=== PATIENT | female | born 1950 | race Caucasian/White ===

== ENCOUNTER 2017-09-24 16:26 | Outpatient (CLI) | payer BC ==
--- NOTE | 2017-09-26 17:12 | Mammography Report ---
DATE OF SERVICE: 09/24/2017 DIGITAL SCREENING MAMMOGRAM: 09/24/2017 CLINICAL INDICATION: A 67-year-old, for screening. COMPARISON: 07/2015, 06/2014, 02/2013, 01/2012, 11/2010. TECHNIQUE: Routine CC and MLO projections were obtained of the breasts. FINDINGS: The breasts demonstrate scattered fibroglandular densities bilaterally. Coarse and punctate, typically benign calcifications are present. No suspicious masses, clustered microcalcifications, or regions of architectural distortion are identified. IMPRESSION: BENIGN FINDINGS. RECOMMENDATION: ROUTINE ANNUAL SCREENING UNLESS OTHERWISE CLINICALLY INDICATED. BIRADS CATEGORY 2-BENIGN FINDINGS. STANDARD QUALIFYING STATEMENTS: 1. This examination was reviewed with the aid of Computer-Aided Detection (CAD). 2. A negative or benign imaging report should not delay biopsy if clinically suspicious findings are present. Consider surgical consultation if warranted. More than 5% of cancers are not identified by imaging. 3. Dense breasts may obscure an underlying neoplasm. TD: 09/26/2017 18:12
== END 2017-09-24 16:27 | disposition home or self-care (01) ==
LOC: DI 16:26
PROVIDERS: ATTEND Physician Assistant Medical
DX: Z12.31 Encounter for screening mammogram for malignant neoplasm of breast (principal)
CPT/HCPCS: 77067

== ENCOUNTER 2018-09-17 14:53 | Outpatient (CLI) | payer BC, MEDICARE ==
--- NOTE | 2018-09-18 11:53 | Ultrasound Report ---
Reason: THYROID NODULE Procedure Date: 09/17/2018 Accession Number: [id number] / [id number] Procedure: US - Head or Neck Soft Tissue CPT Code: FULL RESULT: EXAM: THYROID ULTRASOUND EXAM DATE: 09/17/2018 04:32 PM. CLINICAL HISTORY: Thyroid nodule. COMPARISON: Head or neck soft tissue 03/30/2016 9:07 AM. Thyroid 10/03/2010 10:05 AM. TECHNIQUE: Real time sonographic imaging of the thyroid was performed by the central office installer. Multiple leasing representative static images were saved for review. FINDINGS: THYROID GLAND: Right Lobe: 3.6 x 1.5 x 1.2 cm, volume 3.2 cc. Normal background echotexture. Right Lobe Nodules: Two tiny modules measuring up to 0.7 cm are again seen. Left Lobe: 5.4 x 2.8 x 3.7 cm, volume 29.7 cc. Background parenchyma is difficult to assess as there is essentially diffuse nodular replacement as described below. Left Lobe Nodules: Diffuse cystic and solid nodular replacement with the largest nodule in the upper lobe of the left thyroid gland measuring 1.6 x 1.7 x 1.6 cm, solid with vascularity. The largest nodule in the inferior pole of the left thyroid gland measures 1.9 x 1.2 x 1.6 cm and is partially cystic and partially solid with vascularity by color Doppler. Isthmus: 0.4 cm AP. Isthmic Nodules: None. LYMPH NODES: No adenopathy demonstrated in the central or lateral compartment. OTHER: None. 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 Recommend fine needle aspiration tissue sampling of the dominant left upper pole nodule and dominant left lower pole nodule respectively. Management recommendations are based on 2015 [employer] Management Guidelines for Adult Patients with Thyroid Nodules and Differentiated Thyroid Cancer. RADIA
== END 2018-09-17 14:54 | disposition home or self-care (01) ==
LOC: DI 14:53
PROVIDERS: ATTEND Physician Assistant Medical
DX: E04.2 Nontoxic multinodular goiter (principal)
CPT/HCPCS: 76536

== ENCOUNTER 2018-11-06 13:32 | Outpatient (CLI) | payer BC, MEDICARE ==
[2018-11-06] MEDS ORDERED: BUFFERED LIDOCAINE 10 ML SYRINGE ONE (13:41)
[2018-11-06] MEDS ORDERED: BUFFERED LIDOCAINE 10 ML SYRINGE IU ONE (16:38)
--- NOTE | 2018-11-09 09:19 | Ultrasound Report ---
Reason: THYROID NODULE Procedure Date: 11/06/2018 Accession Number: [id number] / [id number] Procedure: US - FNA Bx w/US Gnd les CPT Code: 91767 FULL RESULT: EXAM: THYROID FINE NEEDLE ASPIRATION EXAM DATE: 11/06/2018 02:01 PM. CLINICAL HISTORY: Thyroid nodule. COMPARISON: None. TECHNIQUE: The risks, benefits, and alternatives of the procedure were discussed with the patient. All questions were answered. Written and verbal consent were obtained. A site was marked over the left thyroid lobe for each of the 2 target nodules in question under live sonographic evaluation, then subsequently prepped and draped in a sterile manner. Local anesthesia was performed with 1% lidocaine. 4 22 gauge fine-needle aspirates/passes were performed through each of the left thyroid lobe in question, upper pole and inferior pole respectively, then passed to the manager work for preparation. Estimated blood loss was 0 mL. Sonographic images demonstrate needle placement within the target nodule in question. Fluoroscopy Time: None Number of Images: 22 FINDINGS IMPRESSION: Biopsy of a superior left thyroid and an inferior left thyroid nodule respectively, FNA. RADIA
== END 2018-11-06 13:33 | disposition home or self-care (01) ==
LOC: DI 13:32
PROVIDERS: ATTEND Physician Assistant Medical
DX: E04.1 Nontoxic single thyroid nodule (principal)
CPT/HCPCS: 10005; 10006

== ENCOUNTER 2019-05-12 08:00 | Outpatient (CLI) | payer MEDICARE ==
[2019-05-12 13:58] LABS: CHOL/HDL RATIO 4.8 (<4.4); CHOLESTEROL 205 mg/dL; HDL CHOLESTEROL 43 mg/dL; LDL CHOLESTEROL,CALCULATED 138 mg/dL; LDL/HDL RATIO 3.2 (<4.4); VLDL CHOLESTEROL 24 mg/dL
== END 2019-05-12 23:59 | disposition home or self-care (01) ==
LOC: LAB.WCP 08:00
PROVIDERS: ATTEND Physician Assistant Medical
DX: E78.5 Hyperlipidemia, unspecified (principal)
CPT/HCPCS: 36415; 80061; 83721

== ENCOUNTER 2019-05-19 14:35 | Outpatient (CLI) | payer MEDICARE ==
--- NOTE | 2019-05-20 10:39 | XRAY Report ---
Reason: LEFT HIP PAIN Procedure Date: 05/19/2019 Accession Number: [id number] / [id number] Procedure: WCP - Hip 1 View LT CPT Code: FULL RESULT: EXAM: LEFT HIP RADIOGRAPHY EXAM DATE: 05/19/2019 02:59 PM. CLINICAL HISTORY: Left hip pain. COMPARISON: XR HIP UNILAT MIN 2 VIEW 08/01/2010 8:03 AM. TECHNIQUE: AP pelvis and 2 views left hip. FINDINGS: Bones: Normal. No fractures or bone lesion. Joints: Right hip prosthesis appears unremarkable. Mild to moderate left hip degenerative changes with joint space loss and osteophytosis. Soft Tissues: Normal. No soft tissue swelling. IMPRESSION: Mild to moderate degenerative changes of the left hip, progressed from 2009. RADIA
== END 2019-05-19 23:59 | disposition home or self-care (01) ==
LOC: DI.WCP 14:35
PROVIDERS: ATTEND Physician Assistant Medical
DX: M16.12 Unilateral primary osteoarthritis, left hip (principal)

== ENCOUNTER 2019-09-28 15:52 | Outpatient (CLI) | payer MEDICARE ==
--- NOTE | 2019-09-29 14:45 | Mammography Report ---
Reason: ROUTINE MAMMO Procedure Date: 09/28/2019 Accession Number: [id number] / [id number] Procedure: CLAUDINE - Screening Mammo w/Jh CPT Code: Final Report FULL RESULT: EXAM: Screening Mammo w/Jh DATE: 09/28/2019 4:50 PM CLINICAL HISTORY: The patient is an asymptomatic 69-year-old female. Second degree family history breast cancer. TECHNIQUE: (B) - Bilateral CC, laterally exaggerated CC, MLO views were obtained. COMPARISON: 09/24/2017, 07/18/2015, 06/23/2014, 02/09/2013 and 01/27/2012 PARENCHYMAL PATTERN: (A) - The breasts demonstrate scattered fibroglandular densities bilaterally. FINDINGS: The pattern of asymmetry is stable given positional differences. There are no suspicious masses, calcifications, or areas of distortion. IMPRESSION: Negative examination. BI-RADS category 1. RECOMMENDATION: (ANNUAL) - Recommend routine annual screening mammography. BI-RADS CATEGORY: (1) - Negative. STANDARD QUALIFYING STATEMENTS: A negative or benign imaging report should not preclude biopsy if clinically suspicious findings are present. Dense breasts may obscure an underlying neoplasm. This examination was reviewed with the aid of 3D breast imaging (tomosynthesis).
== END 2019-09-28 15:53 | disposition home or self-care (01) ==
LOC: DI 15:52
DX: Z12.31 Encounter for screening mammogram for malignant neoplasm of breast (principal); Z80.3 Family history of malignant neoplasm of breast
CPT/HCPCS: 77063; 77067

== ENCOUNTER 2019-12-14 10:40 | Outpatient (CLI) | payer MEDICARE ==
[2019-12-14 15:00] LABS: FREE T4 (FREE THYROXINE) 1.26 ng/dL (0.58-1.64)
== END 2019-12-14 23:59 | disposition home or self-care (01) ==
LOC: LAB.WCP 10:40
PROVIDERS: ATTEND Physician Assistant Medical
DX: E04.1 Nontoxic single thyroid nodule (principal); R30.0 Dysuria
CPT/HCPCS: 36415; 84439; 84443; 87086; 87181

== ENCOUNTER 2020-11-23 08:00 | Outpatient (CLI) | payer MEDICARE ==
[2020-11-23 18:47] LABS: ALBUMIN 4.1 g/dL (3.2-5.5); ALBUMIN/GLOBULIN RATIO 1.5 (1.0-2.2); BILIRUBIN,TOTAL 0.5 mg/dL (0.2-1.0); CALCIUM 9.3 mg/dL (8.5-10.3); CREATININE 0.6 mg/dL (0.4-1.0); POTASSIUM 4.1 mmol/L (3.5-5.0); TOTAL PROTEIN 6.8 g/dL (6.7-8.2)
== END 2020-11-23 23:59 | disposition home or self-care (01) ==
LOC: LAB.WCP 08:00
PROVIDERS: ATTEND Physician Assistant Medical
DX: E87.5 Hyperkalemia (principal)
CPT/HCPCS: 36415; 80053

== ENCOUNTER 2021-11-12 14:49 | Outpatient (CLI) | payer MEDICARE ==
--- NOTE | 2021-11-12 16:54 | DEXA Report ---
PROCEDURE: Dexa Spine and/or Hip INDICATIONS: POST MENOPAUSAL TECHNIQUE: Dual energy x-ray absorptiometry (DXA) was performed on a [employer] System. Regions measur ed are the AP Spine, femoral neck, and if needed forearm. COMPARISON: February 13, 2015. FINDINGS: Lumbar Spine: Bone Mineral Density 1.301 g/cm/cm,T score 1.0, normal Left Femoral Neck: Bone Mineral Density 0.802 g/cm/cm, T score -1.7, osteopenia Total: Bone Mineral Density 0.828 g/cm/cm, T score -1.4, osteopenia (T score greater or equal to -1.0: NORMAL) (T score from -1.1 to -2.4: OSTEOPENIA) (T score less than or equal to -2.5 to: OSTEOPOROSIS) Impression: Bone mineral density as detailed above. Patients with diagnosis of osteoporosis or osteopenia should have regular bone mineral density assess ment. For those eligible for Medicare, routine testing is allowed once every 2 years. Testing frequ ency can be increased for patients who have rapidly progressing disease or for those who are receivin g medical therapy to restore bone mass. Reviewed by: Nate Pérez MD on 11/12/2021 4:52 PM PST Approved by: Nate Pérez MD on 11/12/2021 4:52 PM PST Station ID: [id number]
== END 2021-11-12 14:50 | disposition home or self-care (01) ==
LOC: DI 14:49
PROVIDERS: ATTEND Physician Assistant Medical
DX: Z78.0 Asymptomatic menopausal state (principal); M85.89 Other specified disorders of bone density and structure, multiple sites

== ENCOUNTER 2022-02-18 11:03 | Outpatient (CLI) | payer MEDICARE ==
--- NOTE | 2022-02-18 14:13 | XRAY Report ---
PROCEDURE: Chest 2 View X-Ray INDICATIONS: COUGH TECHNIQUE: 2 view(s) of the chest. COMPARISON: None. FINDINGS: Surgical changes and devices: None. Lungs and pleura: No pleural effusions or pneumothorax. Lungs are clear. Mediastinum: Mediastinal contours are normal. Heart size is normal. Bones and chest wall: No suspicious bony abnormalities. Soft tissues appear unremarkable. IMPRESSION: No acute cardial pulmonary findings. Reviewed by: Juanis Jameson MD on 02/18/2022 2:12 PM PDT Approved by: Juanis Jameson MD on 02/18/2022 2:12 PM PDT Station ID: [id number]
== END 2022-02-18 11:04 | disposition home or self-care (01) ==
LOC: DI.N 11:03
PROVIDERS: ATTEND Physician Assistant
DX: R05.1 Acute cough (principal)

== ENCOUNTER 2023-05-01 11:16 | Outpatient (CLI) | payer MEDICARE ==
--- NOTE | 2023-05-01 20:19 | XRAY Report ---
PROCEDURE: Lumbar Spine 2 View INDICATIONS: LOW BACK PAIN TECHNIQUE: 3 views of the lumbar spine were acquired. COMPARISON: None. FINDINGS: Bones: 5 [id number] vertebrae are present. There is normal bony alignment. No vertebral body compression fractures. No suspicious bony lesions. Disc spaces narrowing and hypertrophic facet pelon nts noted in the upper lumbar spine as well as L5-S1 Soft tissues: Overlying bowel gas pattern is normal. No suspicious soft tissue calcifications. IMPRESSION: Degenerative disc disease and arthropathy Reviewed by: Darren Ponce MD on 05/01/2023 7:18 PM AKDT Approved by: Darren Ponce MD on 05/01/2023 7:18 PM AKDT Station ID: [id number]
== END 2023-05-01 11:17 | disposition home or self-care (01) ==
LOC: DI 11:16
PROVIDERS: ATTEND Physician Assistant Medical
DX: M51.36 Other intervertebral disc degeneration, lumbar region (principal); M51.37 Other intervertebral disc degeneration, lumbosacral region; M47.816 Spondylosis without myelopathy or radiculopathy, lumbar region; M47.817 Spondylosis without myelopathy or radiculopathy, lumbosacral region; G89.29 Other chronic pain

== ENCOUNTER 2023-10-02 12:53 | Outpatient (CLI) | payer MEDICARE ==
--- NOTE | 2023-10-03 11:45 | Mammography Report ---
BILATERAL DIGITAL SCREENING MAMMOGRAM 3D/2D: 10/02/2023 CLINICAL: Routine screening. Comparison is made to exams dated: 09/28/2019 mammogram, 09/24/2017 mammogram, 07/18/2015 mammogram, a nd 06/23/2014 mammogram - [facility]. There are scattered areas of fibroglandular density in both breasts (category b / 25%-50% glandular t issue). No significant masses, calcifications, or other findings are seen in either breast. There has been no significant interval change. IMPRESSION: NEGATIVE There is no mammographic evidence of malignancy. A 1 year screening mammogram is recommended. Based on the Tyrer Cuzick model (a risk assessment model) the patient's lifetime risk is 4.9% and her 10 year risk is 3.3%. According to the ACR, ACS, and NCCN guidelines, an annual breast MRI exam nanda g with mammogram is recommended if the patients lifetime risk is 20% or greater. This exam was interpreted at Station ID: [id number]. NOTE: For mammograms, a report in lay terms will be sent to the patient. Approximately 15% of breast malignancies will not be visualized mammographically. In the management of a palpable breast mass, a negative mammogram must not discourage biopsy of a clinically suspicious lesion. Electronically Signed By: Sanjeev andrade/pastora:10/02/2023 14:13:25 letter sent: No_Letter ACR BI-RADS Category 1: Negative 3341F PARENCHYMAL PATTERN: (A) - The breast(s) demonstrate(s) scattered fibroglandular densities. BI-RADS CATEGORY: (1) - 1 Mammogram [id number] 1 year screening LATERALITY: (B)
== END 2023-10-02 12:54 | disposition home or self-care (01) ==
LOC: DI.N 12:53
DX: Z12.31 Encounter for screening mammogram for malignant neoplasm of breast (principal); R92.323 Mammographic fibroglandular density, bilateral breasts

== ENCOUNTER 2024-02-24 12:39 | Outpatient (CLI) | payer MEDICARE ==
--- NOTE | 2024-02-24 14:00 | XRAY Report ---
PROCEDURE: Lumbar Spine 2-3V INDICATIONS: LOW BACK PAIN TECHNIQUE: 2 views of the lumbar spine were acquired. COMPARISON: 05/01/2023. FINDINGS: Surgical change: None. Bones: 5 [id number] vertebrae are present. Mild dextrocurvature of the thoracolumbar spine. Mil d grade 1 anterolisthesis of L3 on L4. No vertebral body compression fractures. No suspicious bony l esions. There are multilevel degenerative changes of the lumbar spine with facet arthropathy and disc height loss with degenerative endplate changes and marginal spurring. This is most pronounced at L5- S1 with moderate to severe disc height loss. Diffusely decreased osseous mineralization. Soft tissues: Overlying bowel gas pattern is normal. No suspicious soft tissue calcifications. Ath erosclerotic vascular calcifications. Right upper quadrant surgical clips. IMPRESSION: Multilevel degenerative changes of the lumbar spine, most pronounced at L5-S1. Reviewed by: Devonte Johnson MD on 02/24/2024 1:59 PM PDT Approved by: Devonte Johnson MD on 02/24/2024 1:59 PM PDT Station ID: [id number]
--- NOTE | 2024-02-24 16:21 | XRAY Report ---
PROCEDURE: Hip w/Pelvis 2-3V LT INDICATIONS: HIP JOINT PAIN TECHNIQUE: 3 views of the hip were acquired. COMPARISON: 05/19/2019. FINDINGS: Bones: Patient is status post right total hip arthroplasty. Right hip alignment is anatomic. Moderat e left hip joint osteoarthritic changes are seen. No evidence of avascular necrosis of femoral head. Postsurgical changes also noted in pubic bones adjacent to symphysis pubis. No fractures or dislocati ons. No suspicious bony lesions. Soft tissues: No suspicious soft tissue calcifications or masses. IMPRESSION: 1. Moderate left hip joint osteoarthritis. No acute pelvic or hip fracture. No evidence of avascular necrosis. 2. Postsurgical changes in bilateral pubic bones and right hip from prior right total hip arthroplast y. No gross hardware loosening or failure. Reviewed by: Eligio Mike MD on 02/24/2024 4:19 PM PDT Approved by: Eligio Mike MD on 02/24/2024 4:19 PM PDT Station ID: [id number]
== END 2024-02-24 12:40 | disposition home or self-care (01) ==
LOC: DI 12:39
PROVIDERS: ATTEND Nurse Practitioner
DX: M47.816 Spondylosis without myelopathy or radiculopathy, lumbar region (principal); M47.817 Spondylosis without myelopathy or radiculopathy, lumbosacral region; M16.12 Unilateral primary osteoarthritis, left hip; Z96.641 Presence of right artificial hip joint